=== PATIENT | female | born 1940 | race African-American/Black ===

== ENCOUNTER 2017-01-30 08:37 | Emergency (ER) | payer MEDICARE ==
[~2017-01-30] VITALS: Ht 154.9 cm; Wt 62.1 kg
[2017-01-30] MEDS ORDERED: IBUPROFEN 600 MG TABLET. PO ONE (09:15)
--- NOTE | 2017-01-30 09:47 | PHYS DOC ---
Past Medical History Past Medical History: CAD, Hypertension Past Surgical History: Hysterectomy, Tonsillectomy Alcohol Use: None Drug Use: None Adult General Chief Complaint Chief Complaint: LOWER EXTREMITY SWELLING HPI HPI Patient is a 76 year old female who presents with 4+ days of R thigh pain and swelling. Pt noted that she had pain and swelling shortly after her colonoscopy last week. She denies known injury/fall/trauma. She has not attempted pain controlling medication. States the swelling involves her thigh and knee and the pain worsens when she ambulates. No h/o DVT, no anticoagulation. Pt had not yet taken her AM blood pressure medication, denies any pain /sob associated with her elevated bp Review of Systems Review of Systems Constitutional: Denies fever or chills [] Eyes: Denies change in visual acuity, redness, or eye pain [] HENT: Denies nasal congestion or sore throat [] Respiratory: Denies cough or shortness of breath [] Cardiovascular: No additional information not addressed in HPI [] GI: Denies abdominal pain, nausea, vomiting, bloody stools or diarrhea [] : Denies dysuria or hematuria [] Musculoskeletal: Denies back pain or joint pain [] Integument: Denies rash or skin lesions [] Neurologic: Denies headache, focal weakness or sensory changes [] Endocrine: Denies polyuria or polydipsia [] Current Medications Current Medications Current Medications Medications (Trade) Dose Ordered Sig/Lukasz Start Time Stop Time Status Last Admin Dose Admin Ibuprofen (Motrin) 600 mg 1X ONCE 01/30/17 09:15 01/30/17 09:16 DC 01/30/17 09:33 600 MG Allergies Allergies Allergies Coded Allergies Type Severity Reaction Last Updated Verified codeine Allergy Intermediate 01/30/17 Yes Physical Exam Physical Exam Constitutional: Well developed, well nourished, no acute distress, non-toxic appearance. [] HENT: Normocephalic, atraumatic, bilateral external ears normal, oropharynx moist, no oral exudates, nose normal. [] Eyes: PERRLA, EOMI, conjunctiva normal, no discharge. [] Neck: Normal range of motion, no tenderness, supple, no stridor. [] Cardiovascular:Heart rate regular rhythm, no murmur [] Lungs & Thorax: Bilateral breath sounds clear to auscultation [] Abdomen: Bowel sounds normal, soft, no tenderness, no masses, no pulsatile masses. [] Skin: Warm, dry, no erythema, no rash. [] Back: No tenderness, no CVA tenderness. [] Extremities: No tenderness, no cyanosis, no clubbing, ROM intact, no edema. [] Neurologic: Alert and oriented X 3, normal motor function, normal sensory function, no focal deficits noted. [] Psychologic: Affect normal, judgement normal, mood normal. [] Current Patient Data Vital Signs Vital Signs Date Time Temp Pulse Resp B/P (MAP) Pulse Ox O2 Delivery O2 Flow Rate FiO2 01/30/17 10:17 66 20 190/77 (114) 98 01/30/17 08:56 98.1 Room Air 98.1 EKG EKG [] Radiology/Procedures Radiology/Procedures US RLE: Duplex evaluation including grayscale, color flow and spectral Doppler analysis was performed. The femoral and popliteal veins show no filling defects to suggest DVT. The visualized deep veins in the right calf are unremarkable. The area of swelling in the mid right thigh was also examined. There is an ill-defined, predominantly hypoechoic, heterogeneous process within the musculature at this level. It measures approximately 2.6 x 3.6 x 1 cm. This is a nonspecific appearance which may be due to a hematoma or an infectious process. Clinical correlation is suggested. IMPRESSION: 1. There is no sonographic evidence of deep vein thrombosis in the right lower extremity. 2. Ill-defined hypoechoic mass in the right mid thigh as described above. [] Course & Med Decision Making Course & Med Decision Making Pertinent Labs and Imaging studies reviewed. (See chart for details) Pt given ibuprofen. US reviewed, no DVT, fluid collection noted. Again evaluated the patient and no signs of infectious process at this time. Pt stated on the day she developed syptoms, there was redness on her leg but this resolved that day. I think it's more likely the pt had a contusion of her leg causing a hematoma. Discussed +/- of treating with antibiotics vs treating as contusion, we agreed to proceed with contusion care, close monitoring, close f/ u with PCP at , strict return precautions. GENO wrap applied to thigh. Pt to take bp meds when she returns home. Dragon Disclaimer Dragon Disclaimer This electronic medical record was generated, in whole or in part, using a voice recognition dictation system. Departure Departure Impression: Primary Impression: Leg pain Disposition: HOME, SELF-CARE Condition: STABLE Referrals: NADIYA CHAVEZ MSN, RN, J[employer]IOR [employer]A ANALY[employer] (PCP) Scripts Ibuprofen (IBUPROFEN) 600 Mg Tablet 600 MG PO PRN Q6HRS Y for INFLAMMATION, #24 TAB Take with food or milk, as needed for pain Prov: NADIYA SOUZA MD 01/30/17 NADIYA SOUZA MD Jan 30, 2017 09:47
--- NOTE | 2017-01-30 09:55 | RAD ---
Right lower extremity venous ultrasound, 01/30/2017 : History: Right leg swelling and pain Duplex evaluation including grayscale, color flow and spectral Doppler analysis was performed. The femoral and popliteal veins show no filling defects to suggest DVT. The visualized deep veins in the right calf are unremarkable. The area of swelling in the mid right thigh was also examined. There is an ill-defined, predominantly hypoechoic, heterogeneous process within the musculature at this level. It measures approximately 2.6 x 3.6 x 1 cm. This is a nonspecific appearance which may be due to a hematoma or an infectious process. Clinical correlation is suggested. IMPRESSION: 1. There is no sonographic evidence of deep vein thrombosis in the right lower extremity. 2. Ill-defined hypoechoic mass in the right mid thigh as described above.
[2017-01-30] MEDS ORDERED: IBUP-1007 PO (10:08)
[2017-01-30 10:17] VITALS: BP 190/77
== END 2017-01-30 10:15 | disposition home or self-care (01) ==
LOC: ER 08:37
DX: M79.651 Pain in right thigh (principal); R22.41 Localized swelling, mass and lump, right lower limb; I25.10 Atherosclerotic heart disease of native coronary artery without angina pectoris; I10 Essential (primary) hypertension; Z90.710 Acquired absence of both cervix and uterus; Z88.5 Allergy status to narcotic agent
CPT/HCPCS: 93971; 99284-25